=== PATIENT | female | born 1935 | race Caucasian/White ===

== ENCOUNTER 2017-12-22 16:44 | Emergency (ER) | payer OTHER ==
[2017-12-22 17:57] VITALS: BP 140/69; PULSE 70; TEMP 97.9; BMI 22.2
[2017-12-22] MEDS ORDERED: ACETAMINOPHEN 325 MG TABLET (FP) PO ONE (18:10)
--- NOTE | 2017-12-22 18:19 | PDOC ---
History of Present Illness <Rolando Pederson - Last Filed: 12/22/17 20:09> - General History Source: Patient, Spouse Exam Limitations: No Limitations - History of Present Illness Initial Comments: 12/22/17 19:52 The patient is a 82 year old female, with a significant past medical history of hypothyroidism, who presents to the emergency department s/p witnessed mechanical fall earlier today. The patient reports she was walking outside, when suddenly she tripped over uneven concrete. Patient reports her was walking in front of her, but by the time he turned around she was in the process of falling and almost on the ground. Patient reports attempting to break the fall with her left hand, however, her hand slid and she landed Left face forward. Patient reports associated swelling, erythema, and ecchymosis to the left side of the face, specifically at the eye and cheek. Patient denies any loss of consciousness, blurry vision, double vision, headache, dizziness, lightheadedness, numbness, tingling, or neck/back/hip pain. She denies any chest pain, shortness of breath, diaphoresis, palpitations, or lower extremity edema. She denies any abdominal pain, nausea, vomiting, or changes in bladder/ bowel habits. Patient denies any other trauma. Patient is not on any blood thinners but takes an occasional aspirin for pain. Allergies: NKDA Past Surgical History: None reported. Social History: Non smoker. No ETOH or recreational drug use. <Lora Huggins - Last Filed: 12/22/17 20:12> - General Chief Complaint: Injury Stated Complaint: FELL Time Seen by Provider: 12/22/17 17:31 Past History - Past Medical History COPD: No Thyroid Disease: Yes (HYPOTHYROID (S/P PARATHYROIDECTOMY)) - Suicide/Smoking/Psychosocial Hx Smoking Status: No Smoking History: Never smoked Number of Cigarettes Smoked Daily: 0 Hx Alcohol Use: No Drug/Substance Use Hx: No Substance Use Type: None <Rolando Pederson - Last Filed: 12/22/17 20:09> <Lora Huggins - Last Filed: 12/22/17 20:12> - Past Medical History Allergies/Adverse Reactions: Allergies Allergy/AdvReac Type Severity Reaction Status Date / Time No Known Allergies Allergy Verified 12/22/17 16:46 Home Medications: Ambulatory Orders Levothyroxine [Synthroid -] 50 mcg PO DAILY 02/12/12 Review of Systems - Review of Systems Able to Perform ROS?: Yes Comments:: 12/22/17 19:52 CONSTITUTIONAL: No reported: Fever, Chills, Diaphoresis, Generalized Weakness, Malaise, Loss of Appetite HEENT: Reported: left eye/ cheek pain, erythema, swelling, and bruising No reported: Rhinorrhea, Nasal Congestion, Throat Pain, Throat Swelling, Difficulty Swallowing, Ear Pain,, Visual Changes CARDIOVASCULAR: No reported: Chest Pain, Syncope, Palpitations, Irregular Heart Rate, Lightheadedness, Peripheral Edema RESPIRATORY: No reported: Cough, Shortness of Breath, SOB with Exertion, Orthopnea, Wheezing , Stridor, Hemoptysis GASTROINTESTINAL: No reported: Abdominal pain, Abdominal Distension, Nausea, Vomiting, Diarrhea, Constipation, Melena, Hematochezia GENITOURINARY: No reported: Dysuria, Frequency, Urgency, Hesitancy, Flank Pain, Genital Pain MUSCULOSKELETAL: No reported: Myalgia, Arthralgia, Joint Swelling, Back pain, Neck Pain SKIN: Reported: left facial swelling, erythema, bruising and pain No reported: Rash, Itching, Pallor HEMEATOLOGIC/IMMUNOLOGIC: No reported: Easy Bleeding, Easy Bruising, Lymphadenopathy, Frequent infections NEUROLOGIC: No reported: Headache, Focal Weakness, Paresthesias, Vertigo, Lightheadedness, Unsteady Gait, Seizure, Mental Status Changes, Incontinence <Huggins,Giomilsy - Last Filed: 12/22/17 20:12> *Physical Exam - Vital Signs Last Vital Signs Temp Pulse Resp BP Pulse Ox 97.9 F 70 16 140/69 100 12/22/17 16:45 12/22/17 16:45 12/22/17 16:45 12/22/17 16:45 12/22/17 16:45 - Physical Exam Comments: 12/22/17 18:11 GENERAL: The patient is awake, alert, and fully oriented, Nontoxic - in no acute distress. HEAD: Normocephalic, atraumatic. EYES: contusion and abrasions along the left supra and infraorbital ridge, mild diffuse tenderness, EOMI, pupils 2 mm and symmetrically reactive to light ENT: Normal voice, Moist mucous membranes. NECK: Normal range of motion, supple Back: No midline tenderness to the cervical, thoracic or lumbar spine Musculoskelatal: FROM of b/l shoulders, elbows, wrist. FROM of hips, knees, ankles - No signs of ecchymosis, erythema, or crepitus noted on palpation extremities, chest wall, clavicals, ribs, back. LUNGS: Breath sounds equal, clear to auscultation bilaterally. No wheezes, no rhonchi, no rales. HEART: Regular rate and rhythm, normal S1 and S2 without murmur, rub or gallop. ABDOMEN: Soft, nontender, normoactive bowel sounds. No guarding, no rebound. No CVA tenderness NEUROLOGICAL: No facial assymetry, Normal speech, normal movement of upper and lower extremities PSYCH: Normal mood, normal affect. SKIN: Warm, Dry, normal turgor, <Rolando Pederson - Last Filed: 12/22/17 20:09> - Vital Signs Last Vital Signs Temp Pulse Resp BP Pulse Ox 97.9 F 70 16 140/69 100 12/22/17 16:45 12/22/17 16:45 12/22/17 16:45 12/22/17 16:45 12/22/17 16:45 <Leatha Hugginsomcharles - Last Filed: 12/22/17 20:12> ED Treatment Course - RADIOLOGY Radiology Studies Ordered: Category Date Time Status FACIAL BONES CT W/O CONTRAST [CT] Stat CT Scan 12/22/17 18:[address] WITHOUT CONTRAST [CT] Stat CT Scan 12/22/17 18:10 Ordered <Rolando Pederson - Last Filed: 12/22/17 20:09> - RADIOLOGY Radiograph Interpretation: 12/22/17 20:12 EXAM: Head CT INTERPRETED BY: Dr. Leyva REVIEWED BY: Dr. Pederson IMPRESSION: No evidence of acute intracranial hemorrhage or acute calvarial fracture. No mass effects or hydrocephalus. Generalized, age appropriate volume loss with mild to moderate microvascular ischemic changes. EXAM: Facial bones CT INTERPRETED BY: Dr. Leyva REVIEWED BY: Dr. Pederson IMPRESSION: Left receptacle and premaxillary soft tissue swelling/edema. No evidence of acute facial bone fracture. <Leatha Hugginsomilssteve - Last Filed: 12/22/17 20:12> Medical Decision Making - Medical Decision Making 12/22/17 18:12 82y F hx of hypothyfoidism presents with witnessed mechanical fall with L head injury, presents s/p mechanical fall after tripping on an uneven sidewalk - +contusion to L face ith brusing no loose teeth no focal kian tenderness on the cervical/thoracic spine, or along arms/legs will obtain ct head and facial bones to r/o fx and bleed tylenol for pain meds A portion of this note was documented by scribe services under my direction. I have reviewed the details of the note, within reason, and agree with the documentation with the following case summary and management plan written by me 12/22/17 20:09 ct head anc orbits negative will dc with pmd fu and supportive care I discussed the physical exam findings, ancillary test results and final diagnoses with the patient. I answered all of the patient's questions. The patient was satisfied with the care received and felt comfortable with the discharge plan and treatment plan. The patient will call their primary care physician within 24 hours to arrange follow-up and will return to the Emergency Department with any new, persistent or worsening symptoms. <Rolando Pederson - Last Filed: 12/22/17 20:09> *DC/Admit/Observation/Transfer - Discharge Dispostion Admit: No <Rolando Pederson - Last Filed: 12/22/17 20:09> - Attestations Scribe Attestion: 12/22/17 19:52 Documentation prepared by Lora Huggins, acting as medical insurance verifier for Rolando Pederson MD. <Lora Huggins - Last Filed: 12/22/17 20:12> Diagnosis at time of Disposition: Periorbital contusion of left eye Qualifiers: Encounter type: initial encounter Qualified Code(s): S05.12XA - Contusion of eyeball and orbital tissues, left eye, initial encounter Head injury due to trauma Qualifiers: Encounter type: initial encounter Qualified Code(s): S09.90XA - Unspecified injury of head, initial encounter - Discharge Dispostion Disposition: HOME Condition at time of disposition: Good - Patient Instructions Printed Discharge Instructions: DI for Closed Head Injury Additional Instructions: Return to the emergency department immediately with ANY new, persistent or worsening symptoms including any headache, vision changes, nausea/vomiting, or other oncerns. TAke tylenol as needed for headache. You MUST call and follow up with your doctor tomorrow for further evaluation of your symptoms. Results were discussed with you. Please make sure your doctor reviews the results of your emergency evaluation. Print Language: CITIZEN OF [place]
== END 2017-12-22 20:35 | disposition home or self-care (01) ==
LOC: FER 16:44
DX: S09.90XA Unspecified injury of head, initial encounter (principal); S05.12XA Contusion of eyeball and orbital tissues, left eye, initial encounter; E03.9 Hypothyroidism, unspecified; W18.39XA Other fall on same level, initial encounter; Y93.89 Activity, other specified; Y92.410 Unspecified street and highway as the place of occurrence of the external cause
CPT/HCPCS: 70450-TC; 70486-TC; 99282-25

== ENCOUNTER 2022-01-22 21:33 | Emergency (ER) | payer OTHER ==
[2022-01-22 21:54] VITALS: BMI 24.2
[2022-01-22] MEDS ORDERED: ACETAMINOPHEN 325 MG TABLET (FP) ONE (23:21)
[2022-01-22] MEDS ORDERED: ACETAMINOPHEN 325 MG TABLET (FP) PO ONE (23:22)
[2022-01-23] MEDS ORDERED: ACETAMINOPHEN 325 MG TABLET (FP) ONE (00:04)
[2022-01-23 00:39] VITALS: BP 136/78; PULSE 60; TEMP 98
== END 2022-01-23 00:39 | disposition home or self-care (01) ==
LOC: FER 21:33
DX: S00.03XA Contusion of scalp, initial encounter (principal); S09.90XA Unspecified injury of head, initial encounter; W10.9XXA Fall (on) (from) unspecified stairs and steps, initial encounter
CPT/HCPCS: 70450-TC; 72125-TC; 99284-25